=== PATIENT | female | born 1995 | race American Indian/Alaskan Native ===

== ENCOUNTER 2018-10-09 15:39 | Emergency (ER) | payer BC ==
[2018-10-09 15:54] VITALS: BP 109/84
--- NOTE | 2018-10-09 16:29 | UC ---
FLU HPI - HPI Summary HPI Summary: This patient is a 23-year-old female who presents to the urgent care with a chief complaint of having runny nose, nasal congestion, sore throat, dry cough for the last week. She reports that the symptoms are getting better and today is one of her better days. She also complains of having vaginal discharge which is clear and she also complains of itching. She has been having the symptoms for the last 3 days. She denies any history of STDs. She also reports that his last menstrual cycle was 2 weeks ago and she is taking control pills. Her last sexual intercourse was approximately one week ago. She denies any pelvic pain and she denies any abdominal pain. She has no other symptoms. - History of Current Complaint Chief Complaint: UCRespiratory Stated Complaint: COLD SYMP Time Seen by Provider: 10/09/18 16:11 Hx Obtained From: Patient Hx Last Menstrual Period: 2 weeks ago, unknow date ?: No Onset/Duration: Gradual Onset Severity Currently: Mild Severity Initially: Mild Pain Intensity: 0 Associated Signs & Symptoms: Positive: Cough - Risk Factors Influenza Risk Factors: Negative - Allergy/Home Medications Allergies/Adverse Reactions: Allergies Allergy/AdvReac Type Severity Reaction Status Date / Time No Known Allergies Allergy Verified 04/27/16 18:19 Home Medications: Home Medications Albuterol HFA INHALER* [Ventolin HFA Inhaler*] 2 puff INH Q4H PRN 10/09/18 [ History Confirmed 10/09/18] Escitalopram Oxalate [Lexapro 10 mg] 10 mg PO DAILY 10/09/18 [History Confirmed 10/09/18] Ibuprofen TAB* [Advil TAB*] 400 mg PO Q6H PRN 10/09/18 [History Confirmed ] PMH/Surg Hx/FS Hx/Imm Hx Previously Healthy: Yes - Surgical History Surgical History: None - Family History Known Family History: Positive: None Family History: Patient denies any diabetes, hypertension and dyslipidemia and her family. - Social History Alcohol Use: Occasionally Substance Use Type: None Smoking Status (MU): Never Smoked Tobacco Review of Systems All Other Systems Reviewed And Are Negative: Yes Constitutional: Positive: Chills Skin: Positive: Negative Eyes: Positive: Negative ENT: Positive: Sore Throat, Sinus Congestion Respiratory: Positive: Negative Cardiovascular: Positive: Negative Gastrointestinal: Positive: Negative Genitourinary: Positive: Vaginal/Penile Burning, Other - White vaginal discharge and itching. Motor: Positive: Negative Neurovascular: Positive: Negative Musculoskeletal: Positive: Negative Neurological: Positive: Negative Psychological: Positive: Negative Is Patient Immunocompromised?: No Physical Exam - Summary Physical Exam Summary: Vital signs: Reviewed Gen.: Patient is a well-developed and nourished female in no acute distress. Patient is lying comfortably on the stretcher. Head: Normocephalic and atraumatic Eyes: PERRLA, EOMI x2. Ears: Right and Left ear canal and TM WNL Nose and mouth: Positive runnig nose and sinus congestion Neck: Supple, no lymphadenopathy, no JVD Lungs: CTA B/L CVS: S1 & S2 present. No murmurs appreciated. ABDOMEN: Soft, non-tender. No signs of distention. No rebound no guarding, and no masses palpated. Bowel sounds are normal. EXTREMITIES: FROM in all major joints, no edema, no cyanosis or clubbing. NEURO: Alert and oriented x 3. No acute neurological deficits. Speech is normal and follows commands. SKIN: Dry and warm PRODUCT SAFETY MANAGER: Female health communications specialist is present during the examination. External genitalia: slight whiche cheese discharge. No rashes, lesions or ecchymosis. Speculum exam : vaginal ford with no lesions, masses, or rashes. Cervix normal. No CMTs. No adnexal masses. All cultures were collected and send to the lab. Triage Information Reviewed: Yes Vital Signs: Initial Vital Signs Temp 98.0 F 10/09/18 15:49 Pulse 74 10/09/18 15:49 Resp 16 10/09/18 15:49 BP 109/84 10/09/18 15:49 Pulse Ox 97 10/09/18 15:49 Flu Course/Dx - Course Course Of Treatment: This patient is a 24-year-old female who presents to the urgent care with chief complaint of upper respiratory tract infections which are getting better. Likely the patient has a viral infection. She also reports vaginal discharge. The physical exam shows that the patient has a white cheesy discharge in the form vaginal candidiasis and also she has history Ogardenella vaginallis therefore she requested treatment for this. She does have any CMT tenderness however we did send cultures to gonorrhea and chlamydia. The patient will follow with the primary care physician for the results of the STDs test. She does not want any treatment for STDs today. I will send a prescription for Flagyl and Clotrimazole. - Differential Dx/Diagnosis Provider Diagnosis: Vaginal candidiasis, Gardnerella vaginitis Discharge - Sign-Out/Discharge Documenting (check all that apply): Patient Departure All imaging exams completed and their final reports reviewed: No Studies - Discharge Plan Condition: Stable Disposition: HOME Prescriptions: Clotrimazole 1% VAGINAL CREAM* [Gyne-Lotrimin 1% VAGINAL CREAM*] 1 applic VAGINAL BEDTIME #1 tube metroNIDAZOLE TAB* [Flagyl 250 mg TAB*] 250 mg PO TID #21 tab Patient Education Materials: Yeast Infection (ED) Referrals: No Primary Care Phys,NOPCP [Primary Care Provider] - [facility] [place] [facility] [Outside] Additional Instructions: Take medications as instructed. Follow-up with the primary care physician the next 2-5 days. Return to the urgent care if symptoms worsen. - Billing Disposition and Condition Condition: STABLE Disposition: Home
[2018-10-11 14:06] LABS: Neisseria gonorrhoeae (GC) RNA Negative (Negative)
[2018-10-11 14:16] LABS: Trichomonas vaginalis Result Negative (Negative)
--- NOTE | 2018-10-11 17:47 | UC ---
- Progress Note Progress Note: 10/11/2018 Vaginal samples: negative for Gardnerella and Nichelle, negative GC/Chlamydia and T. Vaginalis Please call back patient and inform her of results and advised to stop taking Metronidazole PO and Choltrimazole vaginal cream. Thank you Dilma Lazcano PA-C Course/Dx - Diagnoses Provider Diagnoses: Vaginal candidiasis, Gardnerella vaginitis Discharge - Sign-Out/Discharge Documenting (check all that apply): Post-Discharge Follow Up All imaging exams completed and their final reports reviewed: No Studies - Discharge Plan Condition: Stable Disposition: HOME Prescriptions: Clotrimazole 1% VAGINAL CREAM* [Gyne-Lotrimin 1% VAGINAL CREAM*] 1 applic VAGINAL BEDTIME #5 tube metroNIDAZOLE TAB* [Flagyl 250 mg TAB*] 250 mg PO TID #21 tab Patient Education Materials: Yeast Infection (ED) Referrals: [facility] [place] [facility] [Outside] No Primary Care Phys,NOPCP [Primary Care Provider] - Additional Instructions: Take medications as instructed. Follow-up with the primary care physician the next 2-5 days. Return to the urgent care if symptoms worsen. - Billing Disposition and Condition Condition: STABLE Disposition: Home
== END 2018-10-09 16:51 | disposition home or self-care (01) ==
LOC: UCEAST 15:39
DX: B37.3 Candidiasis of vulva and vagina (principal); N76.0 Acute vaginitis; B96.89 Other specified bacterial agents as the cause of diseases classified elsewhere; R05 Cough
CPT/HCPCS: 87480; 87491; 87510; 87591; 87661; 99212; G0463